=== PATIENT | female | born 1980 | race Hispanic/Latino ===

== ENCOUNTER 2021-07-12 11:54 | Emergency (ER) | payer OTHER ==
[~2021-07-12] VITALS: Ht 154.9 cm; Wt 68.0 kg
== END 2021-07-12 15:14 | disposition home or self-care (01) ==
LOC: ER 12:47
DX: M79.605 Pain in left leg (principal); M79.89 Other specified soft tissue disorders; Z98.890 Other specified postprocedural states; I10 Essential (primary) hypertension
CPT/HCPCS: 93971; 99283

== ENCOUNTER → 2025-07-04 | Outpatient (REF) | payer BC, OTHER | LOC: US 08:49 | PROVIDERS: ATTEND Nurse Practitioner Family | DX: R10.30 Lower abdominal pain, unspecified (principal); K80.20 Calculus of gallbladder without cholecystitis without obstruction; K76.0 Fatty (change of) liver, not elsewhere classified; N83.291 Other ovarian cyst, right side | CPT/HCPCS: 76700; 76856 ==